=== PATIENT | male | born 1955 | race Caucasian/White ===

== ENCOUNTER 2018-04-22 07:36 | Day surgery (SDC) | payer BC ==
[~2018-04-22 07:36] MED LIST: LACTATED RINGERS 1,000 ML IV SCH
[2018-04-22 07:59] VITALS: RESP 16; TEMP 97.3
[2018-04-22] MEDS ORDERED: LIDOCAINE 1% 20 ML VIAL (10MG/ML) FOR IV START INTRADERMA ONE (08:02)
[2018-04-22] MEDS ORDERED: PROPOFOL 10 MG/ML 20 ML VIAL IV ONE (08:37)
--- NOTE | 2018-04-22 08:50 | P.PCN ---
Date of Procedure: 04/22/18 Procedure(s) Performed: BRIEF HISTORY: Patient is a 62-year-old pleasant male, scheduled for an elective colonoscopy as a part of screening for colorectal neoplasia. PROCEDURE PERFORMED: Colonoscopy. PREOPERATIVE DIAGNOSIS: Screening for colon cancer. IV sedation per Anesthesia. PROCEDURE: After informed consent was obtained, the patient, was brought into the endoscopy unit. IV sedation was administered by Anesthesia under continuous monitoring. Digital rectal examination was normal. Initially the Olympus CF- 160 flexible video colonoscope was then inserted in the rectum, gradually advanced into the cecum without any difficulty. Careful examination was performed as the scope was gradually being withdrawn. Ileocecal valve and the appendiceal orifice were visualized and appeared normal. Prep was excellent. Mucosa of the cecum, ascending colon, transverse colon, descending colon, sigmoid colon, and rectum appeared normal. Scattered sigmoid diverticulosis seen. Retroflexion was performed in the rectum and small internal hemorrhoids were seen. The patient tolerated the procedure well. IMPRESSION: Sigmoid diverticulosis Small internal hemorrhoids No evidence of colorectal neoplasia RECOMMENDATIONS: Findings of this examination were discussed with the patient as well as his family. He was advised to resume liquids today. He can have a repeat screening colonoscopy in 10 years
[2018-04-22] MEDS ORDERED: IV FLUID CONTINUATION 1,000 ML IV ONE (08:52)
[2018-04-22 09:12] VITALS: BP 118/75; PULSE 55
== END 2018-04-22 09:28 | disposition home or self-care (01) ==
LOC: ORWHC2ENDO 07:36
PROVIDERS: ATTEND Internal Medicine Gastroenterology
DX: Z12.11 Encounter for screening for malignant neoplasm of colon (principal); K57.30 Diverticulosis of large intestine without perforation or abscess without bleeding; K64.8 Other hemorrhoids; I25.2 Old myocardial infarction; E78.5 Hyperlipidemia, unspecified; I48.91 Unspecified atrial fibrillation; G47.33 Obstructive sleep apnea (adult) (pediatric); Z99.89 Dependence on other enabling machines and devices; Z79.01 Long term (current) use of anticoagulants; Z79.899 Other long term (current) drug therapy; Z79.1 Long term (current) use of non-steroidal anti-inflammatories (NSAID)
CPT/HCPCS: 45378; J2704

== ENCOUNTER → 2019-10-06 | Outpatient (CLI) | payer BC ==
[2019-10-06 09:20] LABS: HCT 47.5 % (39.0-53.0); HGB 15.4 gm/dL (13.0-17.5); MCH 28.8 pg (25.0-35.0); MCHC 32.5 g/dL (31.0-37.0); MCV 88.6 fL (80.0-100.0); Mean Platelet Volume 6.4; Platelet Count 206 k/uL (150-450); RBC 5.36 m/uL (4.30-5.90); RDW 13.2 % (11.5-15.5)
[2019-10-06 09:33] LABS: African American GFR (CKD) >90 (>60 ml/min/1.73 sqM); Anion Gap 9 mmol/L; Blood Urea Nitrogen 17 mg/dL (9-20); Calcium 9.7 mg/dL (8.4-10.2); Carbon Dioxide 29 mmol/L (22-30); Chloride 103 mmol/L (98-107); Glucose 176 mg/dL (74-99); Non-African American GFR(CKD) >90 (>60 ml/min/1.73 sqM); Potassium 4.4 mmol/L (3.5-5.1); Sodium 141 mmol/L (137-145)
[2019-10-06 09:37] LABS: Prothrombin Time 10.7 sec (9.0-12.0)
== END ==
LOC: LABWHC1 09:01
PROVIDERS: ATTEND Internal Medicine
DX: I48.91 Unspecified atrial fibrillation (principal)
CPT/HCPCS: 36415; 80048; 85027; 85610

== ENCOUNTER → 2019-11-21 | Outpatient (CLI) | payer BC ==
[2019-11-21 11:14] LABS: HCT 46.1 % (39.0-53.0); HGB 15.3 gm/dL (13.0-17.5); MCH 29.3 pg (25.0-35.0); MCHC 33.2 g/dL (31.0-37.0); MCV 88.3 fL (80.0-100.0); Mean Platelet Volume 6.9; Platelet Count 176 k/uL (150-450); RBC 5.22 m/uL (4.30-5.90); RDW 13.2 % (11.5-15.5); WBC 5.1 k/uL (3.8-10.6)
[2019-11-21 11:24] LABS: African American GFR (CKD) >90 (>60 ml/min/1.73 sqM); Anion Gap 8 mmol/L; Blood Urea Nitrogen 16 mg/dL (9-20); Calcium 9.6 mg/dL (8.4-10.2); Carbon Dioxide 29 mmol/L (22-30); Chloride 103 mmol/L (98-107); Glucose 116 mg/dL (74-99); Non-African American GFR(CKD) >90 (>60 ml/min/1.73 sqM); Potassium 4.5 mmol/L (3.5-5.1); Sodium 140 mmol/L (137-145)
[2019-11-21 12:00] LABS: INR 0.9 (<1.2); Prothrombin Time 9.7 sec (9.0-12.0)
== END | disposition home or self-care (01) ==
LOC: LABWHC1 10:48
PROVIDERS: ATTEND Internal Medicine
DX: I48.19 Other persistent atrial fibrillation (principal)
CPT/HCPCS: 36415; 80048; 85027; 85610

== ENCOUNTER 2020-03-25 19:43 | Observation (INO) | payer BC ==
[2020-03-25] MEDS ORDERED: SODIUM CHLORIDE 0.9% 500 ML 500 ML IV STA (20:04)
--- NOTE | 2020-03-25 20:07 | ED ---
General Adult HPI - General Chief complaint: Syncope Stated complaint: near syncope Time Seen by Provider: 03/25/20 19:48 Source: patient, EMS, RN notes reviewed Mode of arrival: EMS Limitations: no limitations - History of Present Illness Initial comments: Patient is a pleasant 6 he 4-year-old male presenting to the emergency department for near syncopal event. Patient has been having diarrhea around 2 or 3 times a day for the past several days. Patient did have it a few times today. Patient occasionally gets abdominal cramping or nausea. No vomiting. Slight decrease in appetite however patient has been taking fluids like normal.Please use medication as discussed. Please follow-up with family doctor in the next 2 days of symptoms have not improved. Please return to emergency room if the symptoms increase or worsen or for any other concerns. Went to the bathroom and did have diarrhea today. Patient felt sweaty and lightheaded. Heart rate dropped a 41. Patient felt she is about to pass out. Symptoms lasted less than 1 minute and then resolved. Patient is symptom-free at this time other than feeling fatigued. Patient states his heart rate sometimes does drop into the 40s. Patient does have history of atrial fibrillation. - Related Data Home Medications Medication Instructions Recorded Confirmed Apixaban [Eliquis] 5 mg PO BID 04/20/18 04/20/18 Diltiazem HCl [Cardizem] 120 mg PO QAM 04/20/18 04/20/18 Flecainide [Tambocor] 100 mg PO BID 04/20/18 04/20/18 Ibuprofen [Motrin] 400 mg PO Q6HR PRN 04/20/18 04/22/18 Latanoprost Ophth [Xalatan 0.005%] 1 drops BOTH EYES DAILY 04/20/18 04/22/18 Timolol Maleate [Timolol Maleate 1 applic LEFT EYE BID 04/20/18 04/22/18 0.5% Ophth Gel] Allergies Allergy/AdvReac Type Severity Reaction Status Date / Time No Known Allergies Allergy Verified 04/20/18 12:06 Review of Systems ROS Statement: Those systems with pertinent positive or pertinent negative responses have been documented in the HPI. ROS Other: All systems not noted in ROS Statement are negative. Constitutional: Denies: fever Eyes: Denies: eye pain ENT: Denies: ear pain Respiratory: Denies: cough, dyspnea Cardiovascular: Denies: chest pain Endocrine: Reports: fatigue Gastrointestinal: Reports: nausea, diarrhea. Denies: vomiting Genitourinary: Denies: dysuria Musculoskeletal: Denies: back pain Skin: Denies: rash Neurological: Denies: weakness Past Medical History Past Medical History: Atrial Fibrillation, Cancer, Hyperlipidemia, Osteoarthriti s (OA), Sleep Apnea/CPAP/BIPAP Additional Past Medical History / Comment(s): Hx prostate cancer treated with radiation 11 yrs ago. CPAP use. History of Any Multi-Drug Resistant Organisms: None Reported Past Surgical History: Cardiac Ablation, Orthopedic Surgery Additional Past Surgical History / Comment(s): Colonoscopy, left knee arthroscopy, eye surgery. Additional Past Anesthesia/Blood Transfusion Reaction / Comment(s): "Inappropriate behavior when coming out of anesthesia." Past Psychological History: No Psychological Hx Reported Smoking Status: Former smoker Past Alcohol Use History: Occasional Past Drug Use History: Marijuana - Past Family History Mother Family Medical History: Cancer Additional Family Medical History / Comment(s): Lung cancer. General Exam Limitations: no limitations General appearance: alert, in no apparent distress Head exam: Present: normocephalic Eye exam: Present: normal appearance, PERRL, EOMI. Absent: nystagmus ENT exam: Present: normal oropharynx Neck exam: Present: normal inspection Respiratory exam: Present: normal lung sounds bilaterally Cardiovascular Exam: Present: regular rate, normal rhythm Expanded Peripheral pulses: 2+: Radial (R), Radial (L), Dorsalis Pedis (R), Dorsalis Pedis (L) GI/Abdominal exam: Present: soft. Absent: distended, tenderness, pulsatile mass Extremities exam: Present: normal inspection. Absent: pedal edema, calf ten derness Neurological exam: Present: alert, oriented X3, CN II-XII intact. Absent: motor sensory deficit Expanded Neurological exam: Present: protecting the airway Speech: Present: fluid speech Cranial nerves: EOM's Intact: Normal Motor strength exam: RUE: 5, LUE: 5, RLE: 5, LLE: 5 Eye Response: (4) open spontaneously Motor Response: (6) obeys commands Verbal Response: (5) oriented Psychiatric exam: Present: normal affect, normal mood Skin exam: Present: normal color Course Vital Signs 03/25/20 19:44 Temperature 97 F L Pulse Rate 54 L Respiratory 18 Rate Blood Pressure 170/93 O2 Sat by Pulse 98 Oximetry EKG Findings - EKG Comments: EKG Findings:: Sinus bradycardia 55. [place] 164. QRS 88. QT 424. QTC 45. Normal axis. Normal QRS. No acute ST change. Medical Decision Making - Medical Decision Making Patient reevaluated and resting comfortably in bed. Patient and family updated on results and plan. Case was discussed in detail with Dr. Patel, who will admit his patient with telemetry monitoring and IV fluids. - Lab Data Result diagrams: 03/25/20 20:13 03/25/20 20:13 Lab Results 03/25/20 03/25/20 03/25/20 Range/Units 20:13 20:13 20:13 WBC 9.8 (3.8-10.6) k/uL RBC 5.43 (4.30-5.90) m/uL Hgb 15.4 (13.0-17.5) gm/dL Hct 47.5 (39.0-53.0) % MCV 87.4 (80.0-100.0) fL MCH 28.3 (25.0-35.0) pg MCHC 32.4 (31.0-37.0) g/dL RDW 13.2 (11.5-15.5) % Plt Count 175 (150-450) k/uL Neutrophils % 78 % Lymphocytes % 11 % Monocytes % 4 % Eosinophils % 6 % Basophils % 0 % Neutrophils # 7.6 (1.3-7.7) k/uL Lymphocytes # 1.1 (1.0-4.8) k/uL Monocytes # 0.4 (0-1.0) k/uL Eosinophils # 0.6 (0-0.7) k/uL Basophils # 0.0 (0-0.2) k/uL Sodium 136 L (137-145) mmol/L Potassium 4.3 (3.5-5.1) mmol/L Chloride 100 (98-107) mmol/L Carbon Dioxide 28 (22-30) mmol/L Anion Gap 8 mmol/L BUN 12 (9-20) mg/dL Creatinine 0.77 (0.66-1.25) mg/dL Est GFR (CKD-EPI)AfAm >90 (>60 ml/min/1.73 sqM) Est GFR (CKD-EPI)NonAf >90 (>60 ml/min/1.73 sqM) Glucose 125 H (74-99) mg/dL Calcium 10.0 (8.4-10.2) mg/dL Magnesium 2.1 (1.6-2.3) mg/dL Total Bilirubin 2.2 H (0.2-1.3) mg/dL AST 23 (17-59) U/L ALT 21 (4-49) U/L Alkaline Phosphatase 104 (38-126) U/L Troponin I <0.012 (0.000-0.034) ng/mL Total Protein 7.3 (6.3-8.2) g/dL Albumin 4.9 (3.5-5.0) g/dL - Radiology Data Radiology results: image reviewed (Chest x-ray shows no acute process) Disposition Clinical Impression: Near syncope Disposition: ADMITTED IP TO THIS HOSP Is patient prescribed a controlled substance at d/c from ED?: No Referrals: Gordon Patel MD [Primary Care Provider] - 1-2 days Decision Time: 21:28
[2020-03-25 20:30] LABS: Basophils % (A) 0 %; Eosinophils # (A) 0.6 k/uL (0-0.7); Eosinophils % (A) 6 %; HCT 47.5 % (39.0-53.0); HGB 15.4 gm/dL (13.0-17.5); Lymphocytes # (A) 1.1 k/uL (1.0-4.8); Lymphocytes % (A) 11 %; MCH 28.3 pg (25.0-35.0); MCHC 32.4 g/dL (31.0-37.0); MCV 87.4 fL (80.0-100.0); Mean Platelet Volume 6.9; Monocytes # (A) 0.4 k/uL (0-1.0); Monocytes % (A) 4 %; Neutrophils # (A) 7.6 k/uL (1.3-7.7); Neutrophils % (A) 78 %; Platelet Count 175 k/uL (150-450); RBC 5.43 m/uL (4.30-5.90); RDW 13.2 % (11.5-15.5); WBC 9.8 k/uL (3.8-10.6)
[2020-03-25 20:41] LABS: ALT 21 U/L (4-49); AST 23 U/L (17-59); African American GFR (CKD) >90 (>60 ml/min/1.73 sqM); Albumin 4.9 g/dL (3.5-5.0); Alkaline Phosphatase 104 U/L (38-126); Anion Gap 8 mmol/L; Blood Urea Nitrogen 12 mg/dL (9-20); Carbon Dioxide 28 mmol/L (22-30); Chloride 100 mmol/L (98-107); Glucose 125 mg/dL (74-99); Magnesium 2.1 mg/dL (1.6-2.3); Non-African American GFR(CKD) >90 (>60 ml/min/1.73 sqM); Partial Thromboplastin Time 22.5 sec (22.0-30.0); Potassium 4.3 mmol/L (3.5-5.1); Prothrombin Time 10.3 sec (9.0-12.0); Sodium 136 mmol/L (137-145); Total Bilirubin 2.2 mg/dL (0.2-1.3); Total Protein 7.3 g/dL (6.3-8.2)
--- NOTE | 2020-03-25 20:48 | XR ---
EXAMINATION TYPE: XR chest 2V DATE OF EXAM: 03/25/2020 COMPARISON: None INDICATION: Syncope TECHNIQUE: Frontal and lateral views of the chest are obtained. FINDINGS: The heart size is normal. The pulmonary vasculature is normal. The lungs are clear. IMPRESSION: 1. No acute pulmonary process.
[2020-03-25] MEDS ORDERED: NALOXONE 0.4 MG/ML 1 ML VIAL IV PRN (21:28)
[2020-03-25] MEDS ORDERED: SODIUM CHLORIDE 0.9% 1,000 ML IV SCH (21:30)
[2020-03-26 07:45] LABS: Basophils % (A) 1 %; Eosinophils # (A) 0.7 k/uL (0-0.7); Eosinophils % (A) 10 %; HCT 44.8 % (39.0-53.0); HGB 14.4 gm/dL (13.0-17.5); Lymphocytes # (A) 1.2 k/uL (1.0-4.8); Lymphocytes % (A) 18 %; MCH 28.1 pg (25.0-35.0); MCHC 32.3 g/dL (31.0-37.0); Mean Platelet Volume 6.9; Monocytes # (A) 0.4 k/uL (0-1.0); Monocytes % (A) 6 %; Neutrophils # (A) 4.4 k/uL (1.3-7.7); Neutrophils % (A) 64 %; Platelet Count 173 k/uL (150-450); RBC 5.14 m/uL (4.30-5.90); RDW 13.3 % (11.5-15.5); WBC 6.8 k/uL (3.8-10.6)
[2020-03-26 08:01] LABS: ALT 17 U/L (4-49); AST 19 U/L (17-59); African American GFR (CKD) >90 (>60 ml/min/1.73 sqM); Albumin 3.9 g/dL (3.5-5.0); Alkaline Phosphatase 79 U/L (38-126); Anion Gap 9 mmol/L; Blood Urea Nitrogen 12 mg/dL (9-20); Calcium 8.9 mg/dL (8.4-10.2); Carbon Dioxide 23 mmol/L (22-30); Chloride 105 mmol/L (98-107); Glucose 94 mg/dL (74-99); Non-African American GFR(CKD) >90 (>60 ml/min/1.73 sqM); Sodium 137 mmol/L (137-145); Total Bilirubin 1.5 mg/dL (0.2-1.3); Total Protein 6.3 g/dL (6.3-8.2)
[2020-03-26] MEDS ORDERED: PANTOPRAZOLE 40 MG/10 ML VIAL IV SCH (09:00)
[2020-03-26] MEDS ORDERED: DIPHENOX-ATROP 2.5-0.025 MG 1 EACH TAB PO PRN (11:28)
[2020-03-26 11:42] VITALS: TEMP 98.6
[2020-03-26 13:20] VITALS: BP 146/80; PULSE 64; RESP 20
--- NOTE | 2020-03-26 18:34 | HP ---
HISTORY AND PHYSICAL CHIEF COMPLAINT: Episode of near-syncope and diaphoresis, probably on a vasovagal basis. HISTORY OF PRESENT ILLNESS: This is the first known admission for this 64-year-old white male. He has a history of atrial fibrillation, having undergone catheter ablation in the past. He also had carcinoma of the prostate. He started to have some difficulty with diarrhea for several days. He was going to the bathroom when he suddenly became lightheaded and diaphoretic and nearly passed out. He came to emergency room, where laboratory studies, cardiac enzymes and vital signs were all normal. It was felt that this was probably on a vasovagal basis related to dehydration. REVIEW OF SYSTEMS: He has had no neurologic symptoms currently or in the past, focal neurologic signs or symptoms, difficulty with vision or hearing, chest pain, cough, hemoptysis, murmurs, rheumatic fever, orthopnea, PND, abdominal pain, nausea, vomiting, hematemesis, melena, hematochezia, jaundice, hepatitis, pancreatitis, etc. He has had no renal failure, hematuria dysuria, urgency, diabetes, etc. Past medical history and family history reveal that he is not allergic to any medication. He is on beta ye and flecainide for his history of arrhythmias. He also takes eyedrops for glaucoma. He is on diltiazem as well. Surgically he has catheter ablation in 2018 and procedures on his eyes for glaucoma. His carcinoma of the prostate was treated with noninvasive means. He does not smoke. PHYSICAL EXAMINATION: Blood pressure is 110/70 with a pulse of 86, respirations of 14 and he is afebrile. In general he appeared to be well developed, well nourished, in no acute distress. Skin color is normal. Skin is warm and dry. Lymph nodes are not enlarged. Head, ears, eyes, nose, mouth and throat are normal. Neck veins not distended. Thyroid was not enlarged. Chest is clear. Cardiac exam is normal. Abdomen is soft and nontender. Bowel sounds are present. Extremities are normal. Neurologically he is intact. He is admitted to the hospital with the diagnoses: 1. Near-syncope, probably on a vasovagal basis. 2. History of cardiac arrhythmia with atrial fibrillation. 3. History of carcinoma of the prostate. 4. Dehydration. PLAN: 1. Bed rest. 2. IV fluids. 3. Antidiarrheals. MMODL / IJN: [id number] /
--- NOTE | 2020-03-26 18:55 | DS ---
DISCHARGE SUMMARY CHIEF COMPLAINT: Near-syncopal episode and dehydration. HISTORY OF PRESENT ILLNESS AND PHYSICAL EXAMINATION: Details of this man's history and physical can be found in the initial workup. LABORATORY STUDIES: While he was in the hospital he had laboratory studies, details of which can be found in the laboratory section of his chart. COURSE IN THE HOSPITAL: After admission he was placed on bedrest and started on intravenous fluids and was rehydrated. He had no further problems with diarrhea, lightheadedness, diaphoresis, etc. It was felt that he could go home on his usual activity and diet, and he will follow up in the office in several days. FINAL DIAGNOSES: 1. Vasovagal episode with syncope. 2. Dehydration. 3. Viral gastroenteritis. 4. History of atrial fibrillation. 5. History of carcinoma of the prostate. 6. Glaucoma. OPERATIONS: None. CONSULTATIONS: None. He is improved. MMADY / ISHMAEL: [id number] /
== END 2020-03-26 13:18 | disposition home or self-care (01) ==
LOC: EC 19:43 → 3SCARD 21:28
PROVIDERS: ADMIT Family Medicine; ATTEND Family Medicine
DX: R55 Syncope and collapse (principal); A08.4 Viral intestinal infection, unspecified; E86.0 Dehydration; I48.91 Unspecified atrial fibrillation; E78.5 Hyperlipidemia, unspecified; M19.90 Unspecified osteoarthritis, unspecified site; H40.9 Unspecified glaucoma; G47.30 Sleep apnea, unspecified; Z99.89 Dependence on other enabling machines and devices; Z79.01 Long term (current) use of anticoagulants; Z79.899 Other long term (current) drug therapy; Z92.3 Personal history of irradiation; Z85.46 Personal history of malignant neoplasm of prostate; Z87.891 Personal history of nicotine dependence; Z80.1 Family history of malignant neoplasm of trachea, bronchus and lung; Z03.818 Encounter for observation for suspected exposure to other biological agents ruled out
CPT/HCPCS: 96360; 96361 ×2; 99285; 36415; 93005; 80053 ×2; 83735; 84484 ×2; 85025 ×2; 85610; 85730; 87324; 87635; 71046; G0378 ×2

== ENCOUNTER → 2021-04-25 | Outpatient (CLI) | payer MEDICARE, BC ==
--- NOTE | 2021-04-26 03:45 | MR ---
EXAMINATION TYPE: MR knee RT wo con DATE OF EXAM: 04/25/2021 COMPARISON: None HISTORY: Rt knee outer and posterior pain and swelling x6 months Multiplanar multiecho imaging of the right knee without contrast. There is complete disruption of the anterior cruciate ligament. Posterior cruciate ligament is intact . The lateral meniscus is intact. There is intrasubstance tear of the posterior horn medial meniscus. T here is some diminution of the posterior horn medial meniscus. There is 2 cm patchy area of abnormal increased signal in the anterior aspect of the proximal tibia a t the base of the tibial spines. This is consistent with a large bone bruise. The collateral ligaments are intact. There is small knee joint effusion. There is 4 x 1 cm popliteal cyst. Distal femur is intact. The patella shows mild increased signal in the superior subchondral are a that measures 8 x 4 mm. There is also loss of cartilage on the articular surface of the superior pa tella. IMPRESSION: Complete tear anterior cruciate ligament. Large bone bruise in the intercondylar proximal tibia at th e base of the tibial spines. Subchondral degenerative changes in the superior patella with loss of articular cartilage. Intrasubstance tear of the posterior horn medial meniscus. Popliteal cyst. Mild subcutaneous edema around the knee anteriorly.
== END | disposition home or self-care (01) ==
LOC: RADMRIMAIN 19:41
PROVIDERS: ATTEND Orthopaedic Surgery
DX: M23.321 Other meniscus derangements, posterior horn of medial meniscus, right knee (principal); M75.111 Incomplete rotator cuff tear or rupture of right shoulder, not specified as traumatic; M71.21 Synovial cyst of popliteal space [Baker], right knee

== ENCOUNTER 2021-05-30 08:30 | Day surgery (SDC) | payer MEDICARE, BC ==
[2021-05-28 11:59] VITALS: BMI 27.9
--- NOTE | 2021-05-29 10:53 | HP ---
HISTORY AND PHYSICAL CHIEF COMPLAINT: Right knee pain. HISTORY OF PRESENT ILLNESS: Patient is a 65-year-old male who presents with right knee pain after injury in August of 2020. He notes he twisted his knee while dragging a [place] out of the [place]. He notes intermittent swelling along with lateral pain. Notes his knee feels like it locks. He has tried anti-inflammatories without much relief. He notes daily pain that limits him significantly. PAST MEDICAL HISTORY: Significant for atrial fibrillation, prostate disease, hypercholesterolemia. PAST SURGICAL HISTORY: Significant for left knee arthrotomy and subsequent arthroscopy, in addition to cataract removal. CURRENT MEDICATIONS: Flecainide, ibuprofen, Ketoralac, metoprolol, and Rosuvastatin. ALLERGIES: He denies drug allergies. FAMILY HISTORY: Significant for cancer. SOCIAL HISTORY: Significant previous tobacco use. REVIEW OF SYSTEMS: Sixteen-point review of systems otherwise reviewed and is noncontributory. PHYSICAL EXAMINATION: On examination, the patient is approximately 6 foot 6, 235 pounds of mesomorphic habitus. HEENT exam is nonfocal. Neck is supple. He has painless passive motion of the right hip. Straight leg raise is negative, active motion right knee -10 to 125 degrees of flexion. He has a mild effusion. He is tender about the medial joint line. Collaterals are stable, Ruddy is negative, Nancy's elicits medial pain. His distal neurovascular exam appears intact in the right lower extremity. MRI report right knee 04/25/2021 shows evidence of ACL rupture, posterior tibial edema, along with a posterior medial meniscal tear. IMPRESSION: Right knee internal derangement with symptomatic medial meniscal tear/ACL rupture. RECOMMENDATIONS: I talked to the patient at length regarding his condition and treatment options. At this point, he is having persistent pain and mechanical symptoms despite conservative measures. After thorough discussion, he opts to proceed with surgery. We will plan to proceed with arthroscopic evaluation with probable partial medial meniscectomy in addition to possible ACL debridement. We will likely perform that as an outpatient procedure. Risks and benefits were discussed at length in layman's terms. MMODL / IJN: [id number] /
[~2021-05-30 08:30] MED LIST changes: +DEXAMETHASONE SOD PHOSPHATE 4 MG/ML 1 ML VIAL IV ONE; +MIDAZOLAM 2 MG/2 ML VIAL IV PRN; +ONDANSETRON 4 MG/2 ML VIAL IVP ONE
[2021-05-30] MEDS ORDERED: KETOROLAC 15 MG/ML 1 ML VIAL ONE ×2 (10:28→11:36)
[2021-05-30] MEDS ORDERED: fentaNYL (PF) 50 MCG/ML 2 ML AMP ONE (10:28)
[2021-05-30] MEDS ORDERED: MIDAZOLAM 2 MG/2 ML VIAL ONE (10:28)
[2021-05-30] MEDS ORDERED: LIDOCAINE 1% INJ 10MG/ML (20 ML MDV) ONE (10:28)
[2021-05-30] MEDS ORDERED: PROPOFOL 10 MG/ML 20 ML VIAL IV ONE (10:28)
[2021-05-30] MEDS ORDERED: GLYCOPYRROLATE 0.2 MG/ML 2 ML VIAL ONE (10:28)
[2021-05-30] MEDS ORDERED: HYDROmorphone (PF) 1 MG/ML ONE (10:28)
--- NOTE | 2021-05-30 11:25 | P.OP ---
Date of Procedure: 05/30/21 Preoperative Diagnosis: Internal derangement right knee Postoperative Diagnosis: Right knee posterior medial meniscal tear/posterior lateral meniscal tear/ACL partial rupture Procedure(s) Performed: Right knee arthroscopic partial medial meniscectomy/partial lateral meniscectomy/ACL debridement Anesthesia: JENNIFERA Surgeon: Nakul Yu Estimated Blood Loss (ml): 10 Pathology: none sent Condition: stable Disposition: PACU Indications for Procedure: The patient's a 65-year-old gentleman who presents after a recent injury with persistent/progressive right knee pain and mechanical symptoms despite attempted conservative measures. A discussion of the risks and benefits of operative intervention versus continued conservative measures was made with patient. He opted to proceed with surgery. Operative risks to include infection, neurovascular injury, development of blood clots, possible incomplete resolution of symptoms, possible worsening of symptoms and need for subsequent procedures was discussed. Informed consent was obtained. Operative Findings: As below Description of Procedure: The patient was brought to the operating room, and after induction of general anesthesia examined the right knee. Collaterals were stable, Ruddy was 1+ with a firm endpoint, and posterior drawer was negative. The right lower extremity was prepped and draped in a normal fashion. A superior lateral portal was made through a 3 mm skin incision superior and lateral to the patella. This was used for outflow. A lateral portal was made through a 5 mm vertical skin incision lateral to the patella tendon above the joint line. Diagnostic arthroscopy was performed. On inspection of the medial compartment, a complex tear was noted involving the posterior horn of the medial meniscus in the white- red junction. This was debrided back to a stable base with straight baskets and a motorized shaver. Diffuse grade 2-3 chondral changes were noted in the medial compartment. On inspection of the notch, the anterior cruciate ligament , a partial tear involving the tibial insertion was noted. The impinging tissue was debrided with a motorized shaver. The remainder of the ligament was left intact. On inspection of the lateral compartment, a radial tear involving the middle to posterior one third in the white-white junction was noted. This was debrided back to stable base with a motorized shaver. On inspection of the patellofemoral articulation, grade 2 chondral changes were noted diffusely. The gutters were clear of debris. The knee was then thoroughly irrigated. The portals were closed with Steri-Strips. A sterile dressing was applied in addition to a compression stocking. The patient was awoken from general anesthesia and transferred to recovery room in good condition. Blood loss was estimated at 10 mL. No complications were incurred.
[2021-05-30] MEDS: HYDROmorphone 0.5 MG/0.5 ML SYRINGE IVP PRN ×2 (11:36→11:51)
[2021-05-30] MEDS ORDERED: KETOROLAC 15 MG/ML 1 ML VIAL IM ONE (11:36)
[2021-05-30] MEDS ORDERED: diphenhydrAMINE 50 MG/ML 1 ML VIAL ONE (11:39)
[2021-05-30] MEDS ORDERED: diphenhydrAMINE 50 MG/ML 1 ML VIAL IVP ONE (11:39)
[2021-05-30 11:49] VITALS: TEMP 97
[2021-05-30 12:39] VITALS: PULSE 62
[2021-05-30 12:50] VITALS: BP 136/88; RESP 16
[2021-05-30] MEDS ORDERED: HYDROcodone/APAP 5-325MG 1 EACH TAB PO ONE (12:50)
[2021-05-30] MEDS ORDERED: HYDROcodone/APAP 5-325MG 1 EACH TAB ONE (12:50)
== END 2021-05-30 13:50 | disposition home or self-care (01) ==
LOC: OR 08:30
PROVIDERS: ATTEND Orthopaedic Surgery
DX: S83.241A Other tear of medial meniscus, current injury, right knee, initial encounter (principal); S83.281A Other tear of lateral meniscus, current injury, right knee, initial encounter; S83.511A Sprain of anterior cruciate ligament of right knee, initial encounter; E78.00 Pure hypercholesterolemia, unspecified; I48.91 Unspecified atrial fibrillation; Z79.899 Other long term (current) drug therapy
CPT/HCPCS: 29880; J2250; J1200; J1100; J0690; J2405; J2001; J3010; J1170 ×2; J1885; J2704

== ENCOUNTER → 2022-04-15 | Outpatient (CLI) | payer MEDICARE, BC ==
[~2022-04-15] MED LIST changes: +BEBTELOVIMAB (EUA) 175 MG/2 ML VIAL IV ONE; -DEXAMETHASONE SOD PHOSPHATE 4 MG/ML 1 ML VIAL IV ONE; -LACTATED RINGERS 1,000 ML IV SCH; -MIDAZOLAM 2 MG/2 ML VIAL IV PRN; -ONDANSETRON 4 MG/2 ML VIAL IVP ONE; +SODIUM CHLORIDE 0.9% 500 ML 500 ML in EMPTY BAG 1 BAG IV PRN
[2022-04-15 14:11] VITALS: RESP 16; TEMP 98.6
[2022-04-15 14:12] VITALS: BP 137/73; PULSE 65
== END ==
LOC: PROCWHC3 13:50
PROVIDERS: ATTEND Internal Medicine Geriatric Medicine
DX: U07.1 COVID-19 (principal); E66.9 Obesity, unspecified; Z87.891 Personal history of nicotine dependence; Z68.27 Body mass index [BMI] 27.0-27.9, adult
CPT/HCPCS: Q0222; M0222

== ENCOUNTER → 2023-09-09 | Outpatient (CLI) | payer MEDICARE, BC ==
--- NOTE | 2023-09-09 10:57 | XR ---
EXAMINATION TYPE: XR ankle complete LT DATE OF EXAM: 09/09/2023 COMPARISON: None HISTORY: Pain TECHNIQUE: 3 view left ankle FINDINGS: Ankle mortise is intact. No acute fracture or dislocation is evident. Small Achilles tendon calcaneal heel spur is present. Heel pad appears normal. Soft tissues are unremarkable. Follow up exams can be performed 7-10 days from acute trauma for continued pain. IMPRESSION: 1. No acute osseous abnormality left ankle
== END ==
LOC: RADXRMAIN 09:58
PROVIDERS: ATTEND Internal Medicine Geriatric Medicine
DX: M25.572 Pain in left ankle and joints of left foot (principal)